=== PATIENT | male | born 1955 ===

== ENCOUNTER 2016-04-14 23:05 | Emergency (ER) | payer MEDICAID, OTHER ==
[~2016-04-14] VITALS: Ht 167.6 cm; Wt 92.7 kg
[~2016-04-14 23:05] MED LIST: ALBU8.5H2 IH; ATOR20TA PO; LEVO25TA41 PO; LISI10TA2 PO; METF10002 PO
[2016-04-14 23:07] VITALS: BP 114/76; PULSE 125; RESP 16; O2SAT 94
--- NOTE | 2016-04-14 23:30 | ED.REPORT ---
HPI-URI / Cough / Cold Date of Service Apr 14, 2016 ED Provider: Elie Wiley MD This is a 60 year old male with a history of DM presenting to the emergency department complaining of fever that began 16 hours ago. Associated symptoms include chills, diffuse myalgias, productive cough with green sputum, nasal congestion, sore throat, and bilateral earache. Denies nausea, vomiting, abdominal pain, diarrhea, headache, or constipation. Nursing Notes Stated Complaint: FLU SYMPTOMS/ DIABETIC Chief Complaint: FLU/Cold Symptoms Nursing Notes Reviewed: Yes Allergies: Coded Allergies: ibuprofen (Verified Allergy, Severe, 01/15/09) Scheduled Atorvastatin (Lipitor) 20 Mg Tablet 20 MG PO DAILY Levothyroxine (Levoxyl) 25 Mcg Tablet 25 MCG PO DAILY Lisinopril (Lisinopril) 10 Mg Tablet 10 MG PO DAILY Metformin (Metformin) 1,000 Mg Tablet 1,000 MG PO DAILYWM Oseltamivir Phosphate (Tamiflu) 75 Mg Capsule 75 MG PO BID Scheduled PRN Albuterol HFA (Proair HFA) 8.5 Gm Hfa.aer.ad 2 PUFFS IH Q4 PRN PRN For Shortness of Breath General Time Seen by MD: 23:25 Chief Complaint Fever Hx Obtained From: Patient Arrived By: Walk-in Onset Occurred: 17 - 20 hours ago Symptom Duration: Since onset Severity: Current: Mild Pertinent Negative: Pt denies other symptoms Recent Healthcare: No recent doctor visit, No recent hospitalization Similar Sx Previous: No Past Medical History Past Medical History Reports: Diabetes mellitus Past Surgical History Denies Smoking History Current Every Day Smoker Ambulatory Status Independent Review of Systems Constitutional: Reports: Chills, Fever, Malaise Ears / Nose / Throat: Reports: Earache bilateral, Sore throat Respiratory: Reports: Prod cough, green, Denies: Shortness of breath GI: Denies: Abdominal pain, Constipation, Diarrhea, Nausea, Vomiting Neurologic: Denies: Headache Complete sys rev & neg: except as marked. Physical Exam Initial Vital Signs Vital Signs (First) Date Time Temp Pulse Resp B/P Pulse Ox O2 Delivery O2 Flow Rate FiO2 04/14/16 23:07 37.4 125 16 114/76 94 Room Air Initial VS: Reviewed, Vital signs normal Head / Eyes: Atraumatic, Normocephalic, PERRL Neck: Supple, Non-tender, Full range of motion Cardiovascular: Regular rate & rhythm, Heart sounds normal, Intact distal pulses Abdomen / GI: Soft, Non-tender, No guarding, No rebound, No distention Extremities: Vascular intact, Neuro intact, No swelling, No tenderness Skin: Warm, Dry, No cyanosis Neurologic: Alert, Oriented, Nonfocal Psychiatric: Mood/affect normal, Behavior normal, Normal thought content General/Constitutional: Awake, Alert ENT: Airway patent, Mucous membranes moist, Pharynx NL, Tympanic membs NL Respiratory / Chest: Breath sounds NL, Breath sounds = bilat, No respiratory distress, No rales, No rhonchi, No wheezing Re-Eval/Medical Decision Med Decision/Clinical Course 60-year-old male with less than 24 hours of flulike symptoms found to have influenza A. He was vaccinated. He has also been in contact with family members who are less than one year of age and . It is recommended that these higher risk individuals contact their doctors in the morning. Tamiflu for 5 days. Follow-up with his regular doctor as needed. Re-Evaluation/Progress : Time of Eval: 01:37 Re-Evaluation/Progress Note: Discussed lab results and plan for d/c, all questions addressed. Counseled Regarding: Diagnosis, Lab results, Need for follow-up, When/why to return to ED Discharge & Departure Impression: Primary Impression: Influenza due to influenza A virus Disposition: Home Discharge Condition All VS Reviewed: Yes Condition: Stable Patient Instructions: Influenza (ED) Additional Instructions: Tamiflu 75 mg by mouth twice a day for 5 days, #10 prescription written. High risk family members (less than 1, , elderly, chronic illness) need to be evaluated by primary doctor in likely placed on Tamiflu preventively. Drink plenty of fluids. Follow-up with your regular doctor in the next several days as needed. Do not exposure self to other people. Referrals: Matthew Ruiz MD (PCP) Scribe Attestation Portions of this note were transcribed by Sumanth Crook. I, Dr. Wiley personally performed the history, physical exam and medical decision-making; I reviewed and confirmed the accuracy of the information in the transcribed note. Signed by: marta Mitchell. 04/14/2016, 02:00. Elie Wiley MD Apr 14, 2016 23:30 SUMANTH CROOK Apr 14, 2016 23:37
[2016-04-15] MEDS ORDERED: TAM75UDCAP PO (01:58)
[2016-04-15 02:03] VITALS: PULSE 111; RESP 18; O2SAT 96
== END 2016-04-15 02:04 | disposition home or self-care (01) ==
LOC: AIC 23:05 → SED 04-15 02:04
DX: J10.1 Influenza due to other identified influenza virus with other respiratory manifestations (principal); F17.200 Nicotine dependence, unspecified, uncomplicated; Z88.6 Allergy status to analgesic agent